=== PATIENT | male | born 1985 | race Caucasian/White ===

== ENCOUNTER 2017-09-29 19:40 | Emergency (ER) | payer MEDICAID, OTHER ==
[~2017-09-29] VITALS: Ht 165.1 cm; Wt 52.4 kg
[2017-09-29] MEDS ORDERED: HYDROcodone/acetaminophen 10/325mg tab PO ONE (20:30)
[2017-09-29] MEDS ORDERED: IBUP-1984 PO (21:16)
[2017-09-29] MEDS ORDERED: HYDR-569 PO (21:16)
[2017-09-29 21:32] VITALS: BP 120/73
== END 2017-09-29 21:34 | disposition home or self-care (01) ==
LOC: ER 19:41
DX: S20.212A Contusion of left front wall of thorax, initial encounter (principal); S70.02XA Contusion of left hip, initial encounter; V89.2XXA Person injured in unspecified motor-vehicle accident, traffic, initial encounter; Y93.89 Activity, other specified; Y92.89 Other specified places as the place of occurrence of the external cause; Y99.8 Other external cause status
CPT/HCPCS: 71101; 73502; 99284